=== PATIENT | female | born 1975 | race African-American/Black ===

== ENCOUNTER 2024-02-28 17:01 | Emergency (ER) | payer OTHER ==
[~2024-02-28] VITALS: Ht 170.2 cm; Wt 63.5 kg
[2024-02-28] MEDS ORDERED: TETRAcaine 5 ML BOTTLE ONE ×2 (21:23→21:48)
[2024-02-28] MEDS: TETRAcaine 5 ML BOTTLE EACHEYE ONE (21:51)
[2024-02-28 22:29] VITALS: BP 118/71; TEMP 98; O2SAT 100
== END 2024-02-28 22:29 | disposition home or self-care (01) ==
LOC: ER 17:40
DX: T15.82XA Foreign body in other and multiple parts of external eye, left eye, initial encounter (principal); Y92.89 Other specified places as the place of occurrence of the external cause

== ENCOUNTER 2024-05-12 20:42 | Emergency (ER) | payer MEDICAID, OTHER ==
[~2024-05-12] VITALS: Ht 170.2 cm; Wt 63.5 kg
[2024-05-13] MEDS ORDERED: NAPROXEN 250 MG TABLET ONE (00:48)
[2024-05-13] MEDS ORDERED: ACET-2605 PO (00:50)
[2024-05-13] MEDS ORDERED: IBUP-1957 PO (00:50)
[2024-05-13] MEDS: NAPROXEN 500 MG TABLET PO SCH (00:55)
[2024-05-13 00:57] VITALS: BP 115/68; TEMP 98.1; O2SAT 98
== END 2024-05-13 00:57 | disposition home or self-care (01) ==
LOC: ER 20:49
DX: S92.535A Nondisplaced fracture of distal phalanx of left lesser toe(s), initial encounter for closed fracture (principal); W20.8XXA Other cause of strike by thrown, projected or falling object, initial encounter; Y93.89 Activity, other specified; Y92.098 Other place in other non-institutional residence as the place of occurrence of the external cause; Y99.8 Other external cause status
CPT/HCPCS: 73660-TC

== ENCOUNTER 2025-03-25 19:15 | Emergency (ER) | payer OTHER, MEDICAID ==
[~2025-03-25] VITALS: Ht 170.2 cm; Wt 79.4 kg
[~2025-03-25 19:15] MED LIST: ACET-2605 PO; IBUP-1957 PO
[2025-03-25 20:43] VITALS: BP 103/59; TEMP 98.7; O2SAT 97
== END 2025-03-25 20:47 | disposition home or self-care (01) ==
LOC: ER 19:23
DX: R22.43 Localized swelling, mass and lump, lower limb, bilateral (principal); Z86.718 Personal history of other venous thrombosis and embolism; Z79.899 Other long term (current) drug therapy
CPT/HCPCS: 93970-TC